=== PATIENT | female | born 1950 | race Caucasian/White ===

== ENCOUNTER 2017-04-30 08:54 | Outpatient (CLI) | payer MEDICARE ==
--- NOTE | 2017-04-30 15:35 | MRI ---
MRI OF THE LUMBAR SPINE WITHOUT CONTRAST: DATE: 04/30/17. COMPARISON: 09/11/11. HISTORY: Evaluate anterolisthesis. TECHNIQUE: Multiplanar, multisequence MR imaging of the lumbar spine is provided without contrast. FINDINGS: There is minimal increased T2 signal/STIR signal within the presacral space, less conspicuous than o n the 09/11/11 exam. There is no focal area of osseous marrow edema noted. There are incompletely visualized areas of T2 hyperintense nodularity in the left paraspinal region at T10 and T11 levels, not imaged on axial imaging. This may represent lymphadenopathy. There is diffuse decreased T1 and T2 signal intensity throughout the imaged spine suggesting the pos sibility of an infiltrative process within the lumbar spine bone marrow, unchanged when compared to the 2012 examination. There is anterolisthesis of L5 on S1 measuring 5 mm, new. T12-L1: There is disk desiccation and mild disk space narrowing with no significant central canal o r neural foraminal stenosis. L1-2: Disk desiccation. No significant central canal or neural foraminal stenosis. L2-3: Disk desiccation and mild disk bulge with no central canal stenosis. Mild bilateral facet hy pertrophy with no significant neural foraminal stenosis. L3-4: Mild disk space narrowing and disk desiccation. No significant central canal or neural mino inal stenosis. L4-5: Bilateral facet hypertrophy, right greater than left. No significant central canal or neural foraminal stenosis. L5-S1: There is prominent facet hypertrophy bilaterally, worsened since the prior exam. There is f luid within the facet joint on the left. There is associated moderate bilateral neural foraminal st enosis, worsened. There is mild central canal stenosis. There is multifocal lobulated soft tissue density within the bilateral retrocrural regions and retro peritoneum, evidence of lymphadenopathy. In addition, there are areas of soft tissue nodularity wit hin the paracolic fat bilaterally suggesting possible carcinomatosis. IMPRESSION: 1. Retroperitoneal and retrocrural lymphadenopathy with possible soft tissue metastatic disease wit hin the paracolic fat bilaterally. 2. Diffuse decreased signal intensity within the marrow suggests an infiltrating marrow process, irving ch as a malignancy/metastatic disease. 3. Degenerative change within the lumbar spine, worsened since the prior exam, particularly at the L5-S1 level. A dedicated CT examination of the chest, abdomen, and pelvis is advised. CODE T POS: EULA
== END 2017-04-30 08:55 | disposition home or self-care (01) ==
LOC: MRI 08:54
PROVIDERS: ATTEND Family Medicine
DX: M43.10 Spondylolisthesis, site unspecified (principal); M47.816 Spondylosis without myelopathy or radiculopathy, lumbar region
CPT/HCPCS: 72148

== ENCOUNTER 2019-02-18 17:18 | Emergency (ER) | payer MEDICARE ==
[2019-02-18] MEDS ORDERED: HYDROcodone/Acetaminophen 10/325 mg Tablet ONE (17:35)
[2019-02-18] MEDS ORDERED: Cyclobenzaprine 10 MG TAB ONE (17:40)
--- NOTE | 2019-02-18 17:58 | CT ---
CT head noncontrast HISTORY: Fall. Head injury. FINDINGS: There is no evidence of acute intracranial hemorrhage or infarct. The ventricles appear nor mal in size, shape and position. There is no mass effect or shift of midline structures. Visualized paranasal sinuses remain well aerated. IMPRESSION: No acute intracranial abnormalities are demonstrated.
--- NOTE | 2019-02-18 18:01 | CT ---
CT cervical spine noncontrast HISTORY: Fall. Neck injury. FINDINGS: No acute fracture or dislocation are apparent. Disc space narrowing and osteophytosis throughout the cervical spine. There is 0.4 cm spondylolisthes is at the C3-4 level and 0.2 cm spondylolisthesis at the C4-5 level. No associated fractures. Cervicothoracic junction is intact. IMPRESSION: Prominent degenerative changes. No acute osseous abnormalities are demonstrated
[2019-02-18] MEDS ORDERED: Morphine 4 MG/ML VIAL ONE (18:47)
== END 2019-02-18 20:25 | disposition home or self-care (01) ==
LOC: ERS 17:18
DX: M54.2 Cervicalgia (principal); Z79.899 Other long term (current) drug therapy; W17.89XA Other fall from one level to another, initial encounter
CPT/HCPCS: 70450; 72125; 96374; J2270

== ENCOUNTER 2019-03-03 11:45 | Observation (INO) | payer MEDICARE ==
[2019-03-03 12:30] LABS: #Basophils 0.1 thou/uL (0.0-0.2); #Eosinphils 0.5 thou/uL (0.0-0.7); #Lymphocytes 1.2 thou/uL (1.20-3.40); #Monocytes 0.3 thou/uL (0.11-0.59); #Neutrophils 5.4 thou/uL (1.40-6.50); %Basophils 0.7 % (0.0-1.0); %Eosinophils 6.9 % (0.0-10.0); %Lymphocytes 15.5 % (21.0-51.0); %Monocytes 4.2 % (0.0-10.0); %Neutrophils 72.8 % (42.0-75.0); Hemoglobin 10.8 g/dL (12.0-16.0); Mean Corpuscular HGB CONC 33.6 g/dL (32.0-36.0); Mean Corpuscular Hemoglobin 31.4 pg (27.0-31.0); Mean Corpuscular Volume 93.4 fL (78.0-98.0); Mean Platelet Volume 6.7 fL (7.4-10.4); Platelet Count 367 thou/uL (130-400); RBC Distribution Width 13.9 % (11.5-14.5); Red Blood Cell (RBC) Count 3.45 mill/uL (4.20-5.40); White Blood Cell (WBC) Count 7.4 thou/uL (4.8-10.8)
[2019-03-03 12:50] LABS: ALT (SGPT) Less than 7 U/L (8-55); AST (SGOT) 5 U/L (5-34); Albumin 3.5 g/dL (3.4-4.8); Alkaline Phosphatase 179 U/L (40-150); Anion Gap 8 mmol/L (10-20); BUN (Urea Nitrogen) 6 mg/dL (9.8-20.1); Bilirubin, Total 0.2 mg/dL (0.2-1.2); Calc. Creatinine Clearance 0 mL/min (70-130); Calcium 9.7 mg/dL (7.8-10.44); Carbon Dioxide 28 mmol/L (23-31); Chloride 101 mmol/L (98-107); Estimated GFR-MDRD 87; Globulin 3.1 g/dL (2.4-3.5); Glucose 91 mg/dL (80-115); Potassium 3.9 mmol/L (3.5-5.1); Protein, Total 6.6 g/dL (6.0-8.3); Sodium 133 mmol/L (136-145)
--- NOTE | 2019-03-03 14:25 | RAD ---
XR Chest Pa Lat STANDARD HISTORY: Shortness of breath COMPARISON: 10/30/2012 FINDINGS: The heart size is normal. The lungs are well expanded without focal areas of consolidation, pneumothorax or pleural effusions. Patchy sclerotic change in the right proximal humerus is again noted. IMPRESSION: No radiographic evidence of acute cardiopulmonary process.
[2019-03-03] MEDS ORDERED: Acetaminophen 325 MG TAB PO PRN (16:53)
[2019-03-03 17:10] LABS: Troponin I Less than 0.010 ng/mL (< 0.028)
--- NOTE | 2019-03-03 17:32 | RAD ---
EXAM: 3 views of the left foot HISTORY: Foot pain COMPARISON: None FINDINGS: 3 views of the left foot shows no evidence of acute fracture or dislocation. No soft tissue swelling is seen. No degenerative changes are present. IMPRESSION: No evidence of acute osseous abnormality.
--- NOTE | 2019-03-03 17:54 | HP ---
CHIEF COMPLAINT: Multiple complaints including neck pain, shortness of breath, and left ankle pain. HISTORY OF PRESENT ILLNESS: The patient is a 68-year-old female with a history of mastocytosis, currently on medication, however, she did not bring her medications with her right now, comes into the hospital with multiple complaints. The patient stated that about 3 weeks ago, she had a fall, which was a mechanical fall. She lost her balance and fell backwards, hitting her head. She has been to couple ERs and her PCP, who have prescribed her muscle relaxants and pain medication. However, she continues to have some neck spasms. The patient also states that for the past 4 days, she has been having some blurry vision and also worsening lower extremity edema. The patient also states that normally she is able to walk with her dog, however, for the past 3 weeks, she has been unable to do so. She also feels short of breath at rest. Denies any fevers or chills. Denies any other falls besides the one 3 weeks ago. The patient stated that initially she did have pain in her left hip, however, this has resolved. She denies any. She states that she has nausea, however, no vomiting. She has decreased appetite and she normally has diarrhea daily that is her baseline. PAST MEDICAL HISTORY: She has a history of mastocytosis. ALLERGIES: SHE IS NOT ALLERGIC TO ANYTHING. MEDICATIONS: She takes Nexium, Zyrtec, and I have told to bring the remaining of her medications. FAMILY HISTORY: Sister and mother have rheumatoid arthritis. SOCIAL HISTORY: She denies any alcohol use. However, she smoked a pack and half every 48 hours, quit about 5 years ago and currently, she vapes. Denies any drug use. She is a full code. She lives with her dog. PAST SURGICAL HISTORY: She has had a hysterectomy, appendectomy, and breast implants removed. She has also had cataract removed. REVIEW OF SYSTEMS: All negative except for the ones mentioned above in the HPI. PHYSICAL EXAMINATION: VITAL SIGNS: As of the following; temperature of 97.5, respiratory rate 28, pulse 79, blood pressure 123/72, and oxygen saturation 100% on room air. GENERAL: She is awake, alert, and oriented x3. Does not appear in any distress. HEENT: Normocephalic, atraumatic. No lymphadenopathy noted. Pupils are equal and reactive to light. CARDIOVASCULAR: S1 and S2 present. No murmurs, rubs, or gallops. LUNGS: Clear to auscultation. No rhonchi or wheezes noted. ABDOMEN: Soft and nontender. Bowel sounds are present x2. EXTREMITIES: She does have some swelling and erythema to her left ankle. She does have minimal swelling on her right ankle, which is less than the left ankle. Pedal pulses are present bilaterally. She does have pain upon palpation of her bilateral feet, left greater than right. NEUROVASCULAR: Neurovascular-lambert, I was unable to ambulate the patient, however, she has 5/5 bilateral upper extremity and bilateral lower extremity strength. NEUROMUSCULAR: She also has pain upon palpation around her right sternocleidomastoid muscle and around her paraspinal cervical area. No pain upon palpation to her spine. SKIN: She does have some old scars to her left ankle. She states that she fell while chasing her dog and she had sustained an injury. LABORATORY RESULTS: As of the following; WBCs of 7.4, hemoglobin of 10.8, hematocrit of 32.3, and her platelets are 367. Chemistries; sodium of 133, potassium of 3.9, BUN of 6, creatinine of 0.67. Alkaline phosphatase is 179. Her troponin x1 is negative. Her BNP is 22. Urine has not been done. She did have a chest x-ray and a hip x-ray. Chest x-ray did not show any acute abnormality, and her hip x-ray also did not show any acute abnormality. She does have some coarse trabecular architecture of the proximal femur. She did have an EKG, which indicated some mild ST depression, which were very, very, very not significant. ASSESSMENT AND PLAN: The patient is a 68-year-old female, who presents to the hospital with multiple complaints; 1. Shortness of breath. The patient states that she has been having some mild shortness of breath and also some swelling in her bilateral ankle area. I will get an echocardiogram. Her BNP is normal. We will trend her troponins and continue to monitor. I will also, maybe, get a D-dimer on her. 2. Blurry vision. I will get an MRI brain since she stated that this happened after she sustained a fall. She has no other neurovascular deficits. 3. Left ankle pain and swelling. I will go ahead and start her on prophylactic antibiotics for possible cellulitis. I will get an x-ray, maybe get venous Dopplers just to rule out deep venous thrombosis. Also, we will get PT and OT to evaluate her since she is having pain on ambulation and if it feels unsteady. I will also check a vitamin B12 level on her. 4. History of mastocytosis. I have asked her to bring her home medications. 5. Deep venous thrombosis prophylaxis. We will put patient on some SCDs and subcu Lovenox. Of note, I did review the patient's records and she has had a lymph node biopsy for the retroperitoneal lymphadenopathy, which according to the report was negative. However, she did state that she did go to [facility], was diagnosed with mastocytosis. I will also get a vitamin B12 and a vitamin D on her. Job ID: [id number]
--- NOTE | 2019-03-03 17:55 | MRI ---
EXAM: MRI of the brain without contrast HISTORY: Blurry vision COMPARISON: None TECHNIQUE: Multiplanar multisequence MR images were obtained of the brain without IV contrast. FINDINGS: The brain demonstrates normal signal intensity on all obtained sequences. No restricted diffusion. No hydronephrosis. No extra-axial fluid collection or intracranial hemorrhage. The expected flow voids are present. Corpus callosum, pituitary, and craniocervical junction are within normal limits. The calvarium and overlying soft tissues are unremarkable. The paranasal sinuses and mastoid air cells are well aerated. IMPRESSION: No evidence of acute intracranial abnormality.
[2019-03-03 18:44] VITALS: BMI 21.4
[2019-03-03] MEDS: Ketorolac Tromethamine 30 MG/ML VIAL IVP SCH (19:49)
[2019-03-03 19:56] LABS: Troponin I Less than 0.010 ng/mL (< 0.028)
[2019-03-03] MEDS: cefTRIAXone\\ROCEPHIN 1 GM in Sodium Chloride 0.9% 100 ML IVPB SCH (19:56)
[2019-03-03] MEDS ORDERED: Zolpidem Tartrate 5 MG TAB PO PRN (20:22)
[2019-03-03] MEDS: Cyclobenzaprine 10 MG TAB PO SCH (21:09)
[2019-03-04] MEDS: Ketorolac Tromethamine 30 MG/ML VIAL IVP SCH ×3 (00:04→12:18)
[2019-03-04 05:38] LABS: #Eosinphils 0.6 thou/uL (0.0-0.7); #Lymphocytes 1.5 thou/uL (1.20-3.40); #Monocytes 0.3 thou/uL (0.11-0.59); #Neutrophils 3.7 thou/uL (1.40-6.50); %Basophils 0.2 % (0.0-1.0); %Eosinophils 9.7 % (0.0-10.0); %Monocytes 5.2 % (0.0-10.0); %Neutrophils 59.9 % (42.0-75.0); Hemoglobin 9.9 g/dL (12.0-16.0); Mean Corpuscular HGB CONC 33.6 g/dL (32.0-36.0); Mean Corpuscular Hemoglobin 31.6 pg (27.0-31.0); Mean Corpuscular Volume 94.1 fL (78.0-98.0); Mean Platelet Volume 7.2 fL (7.4-10.4); Platelet Count 309 thou/uL (130-400); RBC Distribution Width 13.8 % (11.5-14.5); Red Blood Cell (RBC) Count 3.13 mill/uL (4.20-5.40); White Blood Cell (WBC) Count 6.1 thou/uL (4.8-10.8)
[2019-03-04 05:49] LABS: Anion Gap 10 mmol/L (10-20); BUN (Urea Nitrogen) 9 mg/dL (9.8-20.1); Calc. Creatinine Clearance 72 mL/min (70-130); Calcium 9.2 mg/dL (7.8-10.44); Carbon Dioxide 25 mmol/L (23-31); Chloride 100 mmol/L (98-107); Estimated GFR-MDRD Greater than 90; Glucose 84 mg/dL (80-115); Potassium 3.7 mmol/L (3.5-5.1); Sodium 131 mmol/L (136-145)
[2019-03-04] MEDS: Cyclobenzaprine 10 MG TAB PO SCH ×2 (08:50→16:25)
[2019-03-04] MEDS ORDERED: Enoxaparin Sodium 40 MG/0.4 ML SYRINGE SC SCH (09:00)
[2019-03-04 15:31] VITALS: BP 103/57; TEMP 98
[2019-03-04] MEDS: cefTRIAXone\\ROCEPHIN 1 GM in Sodium Chloride 0.9% 100 ML IVPB SCH (16:25)
[2019-03-04] MEDS ORDERED: Loratadine 10 MG TAB PO SCH (17:00)
--- NOTE | 2019-03-04 17:28 | PDOC.HOSPP ---
- Subjective Encounter Date: 03/04/19 Encounter Time: 10:30 Subjective: pt up in bed no complains - Objective Vital Signs & Weight: Vital Signs (12 hours) Temp Pulse Pulse Pulse Pulse Resp BP 03/04/19 15:10 98.0 F 83 20 03/04/19 11:51 97.5 F L 76 16 03/04/19 09:21 80 84 83 113/64 03/04/19 09:20 80 84 83 113/64 03/04/19 07:40 97.4 F L 79 16 BP BP BP Pulse Ox Pulse Ox 03/04/19 15:10 103/57 L 96 03/04/19 11:51 109/76 96 03/04/19 09:21 121/78 119/60 94 L 03/04/19 09:20 121/78 119/60 94 L 03/04/19 07:40 139/68 95 Weight Weight 121 lb I&O: 03/03/19 03/04/19 03/05/19 06:59 06:59 06:59 Intake Total 690 Output Total 400 Balance 290 Result Diagrams: 03/04/19 04:37 03/04/19 04:37 Hospitalist ROS - Review of Systems Respiratory: denies: cough, dry, shortness of breath, hemoptysis, SOB with excertion, pleuritic pain, sputum, wheezing, other Cardiovascular: denies: chest pain, palpitations, orthopnea, paroxysmal noc. dyspnea, edema, light headedness, other Gastrointestinal: denies: nausea, vomiting, abdominal pain, diarrhea, constipation, melena, hematochezia, other - Medication Medications: Active Medications Generic Name Dose Route Start Last Admin Trade Name Luz PRN Reason Stop Dose Admin Acetaminophen 650 mg 03/03/19 16:53 03/03/19 22:26 Tylenol PO 650 mg Q4H PRN Administration Headache/Fever/Mild Pain (1-3) Amitriptyline HCl 75 mg 03/03/19 21:00 03/03/19 21:09 Elavil PO 75 mg HS ELISABET Administration Cyclobenzaprine HCl 10 mg 03/03/19 21:00 03/04/19 16:25 Flexeril PO 10 mg TID ELISABET Administration Enoxaparin Sodium 40 mg 03/04/19 09:00 03/04/19 08:51 Lovenox SC 40 mg 0900 ELISABET Administration Ceftriaxone Sodium 1 gm/ 100 mls @ 200 mls/hr 03/03/19 17:00 03/04/19 16:25 Sodium Chloride IVPB 100 mls Q24HR ELISABET Administration Ketorolac Tromethamine 15 mg 03/03/19 18:00 03/04/19 12:18 Toradol IVP 03/04/19 18:01 15 mg Q6HR ELISABET Administration Loratadine 10 mg 03/04/19 17:00 03/04/19 16:25 Claritin PO 10 mg 1700 ELISABET Administration Pantoprazole Sodium 40 mg 03/04/19 09:00 03/04/19 08:50 Protonix PO 40 mg DAILY ELISABET Administration Sodium Chloride 10 ml 03/04/19 09:00 03/04/19 08:51 Flush - Normal Saline IVF 10 ml Q12HR ELISABET Administration Zolpidem Tartrate 5 mg 03/03/19 20:22 03/03/19 22:25 Ambien PO 5 mg HSPRN PRN Administration Insomnia - Exam Neck: negative: supple, symmetric, no JVD, no thyromegaly, no lymphadenopathy, no carotid bruit, JVD Heart: negative: RRR, no murmur, no gallops, no rubs, normal peripheral pulses, irregular, diminshed peripheral pulses, murmur present, II/IV, III/IV Extremities - other findings: mild erythema noted to left ankle and edema Hosp A/P (1) SOB (shortness of breath) Code(s): R06.02 - SHORTNESS OF BREATH Status: Acute (2) Low vitamin B12 level Code(s): E53.8 - DEFICIENCY OF OTHER SPECIFIED B GROUP VITAMINS Status: Acute (3) Left ankle pain Code(s): M25.572 - PAIN IN LEFT ANKLE AND JOINTS OF LEFT FOOT Status: Acute - Plan echo pending, will continue current tx. she feels much better today. possible discharge today.
--- NOTE | 2019-03-04 22:17 | DIS ---
DATE OF ADMISSION: 03/03/2019 DATE OF DISCHARGE: 03/04/2019 DISCHARGE DIAGNOSES: Left lower leg pain, shortness of breath, blurry vision. HOSPITAL COURSE: The patient is a 68-year-old female, who has a history of mastocytosis per her, who presented to the hospital with multiple complaints. She stated that she had a fall about 3 weeks ago and has not been feeling well since. She also has been feeling some pain on ambulation. She also complained of some shortness of breath and also some blurry vision. She did have an MRI brain, which was negative. She also had her left foot x-ray, which was normal. No acute abnormalities. Chest x-ray also did not indicate any acute abnormalities. She did have, however, a patchy sclerotic change in her right proximal humerus that was noted. I did speak with the patient's daughter, who stated that she has mentioned to her that she possibly has Paget's. I did tell her to follow up with her primary for further evaluation and looking into this. I have ordered her an echocardiogram. However, it was done, the results are pending. Her BNP was 22.6. Her troponins x3 were negative. Her CRP was 3.53. She had no leukocytosis, however, I did check ESR, which was negative and her vitamin B12 and vitamin D were significantly low. Her vitamin B12 was 199 and vitamin D was 15.3. I have asked the patient to follow up with the primary. I will replace her vitamin B12 and vitamin D. She states that when she got vitamin B12 shot, she had some knots and did not tolerate that pretty well. I also have checked an SELAM, which is pending. I have told the daughter and the patient that she needs to follow up with her lab results with her primary. The patient feels comfortable to go home. She states she feels much better. She has been ambulating up and down without any difficulties. I prophylactically treated her for cellulitis for about 5 days with some Keflex. I believe her pain in left ankle could be possible secondary to gout, however, I am not sure. I did start her on some ibuprofen and some muscle relaxant, which has helped her dramatically with her pain. HOME MEDICATIONS: Her home medications will be as of the followin. Keflex 500 mg q.i.d. 2. Vitamin D 1000 units p.o. daily. 3. Vitamin B12 of 1000 mcg p.o. daily. 4. Flexeril 10 mg t.i.d. 5. Ibuprofen 600 mg b.i.d. 6. Florastor 250 daily. 7. Amitriptyline 75 mg at bedtime. 8. Nexium 20 mg daily. 9. Zyrtec 10 mg daily. It is noted that she has a penicillin allergy. However, in the hospital, I have given her ceftriaxone and she has had no issues. Again, I have told her to follow up with her primary, follow up with the lab results, and I have advised her that if her echo comes back abnormal, I will call her with it. If not, I will not call her. Job ID: [id number]
[2019-03-05 16:59] LABS: ANA Symphony (Qualitative) Negative (Negative); ANA Symphony (Quantitative) 0.2 Ratio (< 0.7 Negative); dsDNA IgG Antibody 1.9 IU/mL (<10 Negative)
== END 2019-03-04 18:19 | disposition home or self-care (01) ==
LOC: ERS 11:45 → 2SW 16:54
PROVIDERS: ADMIT Internal Medicine; ATTEND Internal Medicine
DX: R06.02 Shortness of breath (principal); H53.8 Other visual disturbances; M25.572 Pain in left ankle and joints of left foot; M54.2 Cervicalgia; F17.290 Nicotine dependence, other tobacco product, uncomplicated; Z79.899 Other long term (current) drug therapy; Z88.0 Allergy status to penicillin; Z88.5 Allergy status to narcotic agent; Z91.81 History of falling
CPT/HCPCS: 70551; 71046; 73630; 80048; 80053; 82306; 82607; 83880; 84484 ×2; 84550; 85025 ×2; 85652; 86038; 86140; 86225; 93005; 93306; 96365; 96372; 96375; 96376; 97116; 97139 ×2; 97530; 99285; G0378 ×3; 36415; J0696; J1650; J1885; J3490

== ENCOUNTER 2019-08-04 13:26 | Emergency (ER) | payer MEDICARE ==
[2019-08-04] MEDS ORDERED: Iopamidol-370 76% 500 ML 1 ML ONE (13:58)
[2019-08-04 14:10] LABS: #Eosinphils 0.2 thou/uL (0.0-0.7); #Lymphocytes 1.4 thou/uL (1.20-3.40); #Monocytes 0.3 thou/uL (0.11-0.59); #Neutrophils 4.2 thou/uL (1.40-6.50); %Basophils 0.6 % (0.0-1.0); %Eosinophils 3.8 % (0.0-10.0); %Lymphocytes 22.4 % (21.0-51.0); %Monocytes 4.3 % (0.0-10.0); %Neutrophils 68.9 % (42.0-75.0); Hemoglobin 11.4 g/dL (12.0-16.0); Mean Corpuscular HGB CONC 34.1 g/dL (32.0-36.0); Mean Corpuscular Hemoglobin 31.8 pg (27.0-31.0); Mean Corpuscular Volume 93.2 fL (78.0-98.0); Mean Platelet Volume 7.6 fL (7.4-10.4); Platelet Count 179 thou/uL (130-400); Red Blood Cell (RBC) Count 3.59 mill/uL (4.20-5.40)
[2019-08-04 14:34] LABS: ALT (SGPT) 19 U/L (8-55); AST (SGOT) 14 U/L (5-34); Albumin 4.2 g/dL (3.4-4.8); Alkaline Phosphatase 375 U/L (40-110); Anion Gap 12 mmol/L (10-20); BUN (Urea Nitrogen) 6 mg/dL (9.8-20.1); Bilirubin, Total 0.3 mg/dL (0.2-1.2); Calc. Creatinine Clearance 0 mL/min (70-130); Calcium 9.6 mg/dL (7.8-10.44); Carbon Dioxide 26 mmol/L (23-31); Chloride 102 mmol/L (98-107); Estimated GFR-MDRD 90; Globulin 3.2 g/dL (2.4-3.5); Glucose 106 mg/dL (80-115); Potassium 4.6 mmol/L (3.5-5.1); Protein, Total 7.4 g/dL (6.0-8.3); Sodium 135 mmol/L (136-145)
--- NOTE | 2019-08-04 15:05 | RAD ---
AP PELVIS: Date: 08/04/2019 HISTORY: Right groin pain. FINDINGS: The mixed sclerotic bony changes that have been noted on previous exam are compatible with patient's history of mastocytosis. Avulsive injury involving the lesser trochanter of the right hip is seen. IMPRESSION: Avulsion of the lesser trochanter of the right hip. POS: EULA
--- NOTE | 2019-08-04 15:07 | RAD ---
RIGHT HIP 2 VIEWS: Date: 08/04/2019 HISTORY: Groin pain and history of mastocytosis. COMPARISON: CT examination done in 2013. FINDINGS: Mixed sclerotic bony changes are again noted. This is compatible with a history of mastocytosis. Ther e is an acute avulsion injury of the lesser trochanter. IMPRESSION: Acute avulsion of the lesser trochanter of the right hip. POS: SHRUTI
[2019-08-04] MEDS ORDERED: Ketorolac Tromethamine 30 MG/ML VIAL ONE (15:12)
[2019-08-04] MEDS ORDERED: Ondansetron PF 4 MG/2 ML Vial ONE (15:18)
--- NOTE | 2019-08-04 15:43 | CT ---
CT ABDOMEN AND PELVIS PERFORMED WITH CONTRAST ENHANCEMENT: HISTORY: Abdominal pain. The patient felt something pop in right groin area. COMPARISON: 12/25/2012 study. FINDINGS: The lung bases show linear changes consistent with atelectasis versus scar. Hypodensities within the liver are most compatible with cysts. There is some mild fatty change to th e liver. The spleen is a somewhat thin elongated spleen. It measures 12.3 cm in length. The liver measures 18.4 cm in length. Pancreas shows no mass. The gallbladder is distended. Focus of increas ed attenuation along the gallbladder wall could represent a polyp or a small stone. Right and left adrenal glands and right and left kidneys are normal in size. There are enlarged lymp h nodes in the peripancreatic gastrohepatic ligament, retrocrural, periaortic, aortocaval, and mesent shabbir regions. This adenopathy is actually less pronounced than on the [address] OF PELVIC PERFORMED WITH CONTRAST ENHANCEMENT: There is a mild amount of stool in the rectosigmoid colon. 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 No free fluid. Review of osseous structures showed diffuse mixed sclerotic and lytic bony change. On the previous e xamination, these changes has more of a blastic or sclerotic appearance. This may be the sequelae of treatment. There is an acute avulsion fracture of the lesser trochanter of the right hip. IMPRESSION: 1. Avulsion fracture of the lesser trochanter of the right hip. This would be most likely the etiol ogy of patient's pain. 2. Mild hepatosplenomegaly. 3. Diffuse abdominal adenopathy as well as bony changes which could all be compatible with the patie nt's history of mastocytosis. 4. Probable small gallstones. POS: SHRUTI
== END 2019-08-04 16:56 | disposition home or self-care (01) ==
LOC: ERS 13:26
DX: S72.121A Displaced fracture of lesser trochanter of right femur, initial encounter for closed fracture (principal); D47.09 Other mast cell neoplasms of uncertain behavior; X50.1XXA Overexertion from prolonged static or awkward postures, initial encounter
CPT/HCPCS: 36415; 72170; 74177; 80053; 85025; J1885; J2405; Q9967

== ENCOUNTER 2019-08-21 18:20 | Inpatient (IN) | payer MEDICARE ==
[2019-08-21] MEDS ORDERED: Ketorolac Tromethamine 30 MG/ML VIAL ONE (19:15)
[2019-08-21] MEDS ORDERED: Fentanyl 100 MCG/2 ML VIAL ONE (19:15)
[2019-08-21] MEDS ORDERED: Ondansetron ODT 4 MG TAB SL PRN (23:31)
[2019-08-21] MEDS ORDERED: HYDROcodone/Acetaminophen 5/325 mg Tablet PO PRN ×2 (23:31)
[2019-08-21] MEDS ORDERED: Ondansetron PF 4 MG/2 ML Vial IVP PRN (23:31)
[2019-08-21 23:44] VITALS: BMI 23.2
[2019-08-22] MEDS ORDERED: HYDROcodone/Acetaminophen 5/325 mg Tablet PO PRN (02:00)
[2019-08-22] MEDS ORDERED: Ondansetron ODT 4 MG TAB PO PRN (02:00)
[2019-08-22] MEDS ORDERED: PROVENTIL INHALER 6.7 G (200 INHALATIONS) INH PRN (02:05)
[2019-08-22 02:35] LABS: #Eosinphils 0.5 thou/uL (0.0-0.7); #Lymphocytes 2.2 thou/uL (1.20-3.40); #Monocytes 0.4 thou/uL (0.11-0.59); #Neutrophils 1.6 thou/uL (1.40-6.50); %Basophils 0.8 % (0.0-1.0); %Eosinophils 10.5 % (0.0-10.0); %Lymphocytes 47.2 % (21.0-51.0); %Monocytes 8.1 % (0.0-10.0); %Neutrophils 33.4 % (42.0-75.0); Hemoglobin 10.3 g/dL (12.0-16.0); Mean Corpuscular HGB CONC 33.7 g/dL (32.0-36.0); Mean Corpuscular Hemoglobin 31.1 pg (27.0-31.0); Mean Corpuscular Volume 92.5 fL (78.0-98.0); Mean Platelet Volume 8.2 fL (7.4-10.4); Platelet Count 115 thou/uL (130-400); Red Blood Cell (RBC) Count 3.32 mill/uL (4.20-5.40); White Blood Cell (WBC) Count 4.7 thou/uL (4.8-10.8)
[2019-08-22 02:48] LABS: Bacteria/HPF None Seen HPF (None Seen); Bilirubin Negative (Negative); Blood, Urine Negative (Negative); Clarity Clear (Clear); Glucose, Urine (Dipstick) Normal (Negative); Leukocyte Negative Leu/uL (Negative); Nitrite Negative (Negative); Protein, Urine (Dipstick) Negative (Neg-Trace); RBC/HPF 0-3 HPF (0-3); Squamous Epithelial None Seen HPF (0-3); Urobilinogen Normal mg/dL (Less than 2); WBC/HPF 0-3 HPF (0-3)
[2019-08-22 02:49] LABS: ALT (SGPT) 9 U/L (8-55); AST (SGOT) 12 U/L (5-34); Albumin 3.9 g/dL (3.4-4.8); Alkaline Phosphatase 921 U/L (40-110); Anion Gap 11 mmol/L (10-20); BUN (Urea Nitrogen) 10 mg/dL (9.8-20.1); Bilirubin, Total 0.4 mg/dL (0.2-1.2); Calc. Creatinine Clearance 64 mL/min (70-130); Calcium 9.8 mg/dL (7.8-10.44); Carbon Dioxide 28 mmol/L (23-31); Chloride 102 mmol/L (98-107); Estimated GFR-MDRD 78; Glucose 93 mg/dL (80-115); Magnesium 2.1 mg/dL (1.6-2.6); Potassium 4.6 mmol/L (3.5-5.1); Protein, Total 6.9 g/dL (6.0-8.3); Sodium 136 mmol/L (136-145)
[2019-08-22 02:51] LABS: Urine Culture Reflex No No
--- NOTE | 2019-08-22 03:26 | HP ---
TIME OF ASSESSMENT: 0100 hours. CHIEF COMPLAINT: Severe right groin pain. HISTORY OF PRESENT ILLNESS: Ms. Griffin is a 69-year-old woman, with a known history of mastocytosis, who previously was being seen at [facility]. The patient states she was told nothing could be done and has not been following with anyone as of recently. She states she came into the emergency department two weeks ago after experiencing severe pain on the inner right groin. The patient states she was on the toilet and when she stood up, she heard a loud pop and felt severe pain on the inside of her groin. She was noted to have an acute avulsion fracture of the lesser trochanter of the right hip. Per the patient, she was recommended to follow up with Ortho as an outpatient and given a walker to mobilize at home. The patient states that yesterday she was once again attempting to urinate and this time felt severe pain with a popping sensation along the lateral right hip. She states since two weeks ago, she has had to straddle the toilet and has not been able to sit due to the severe pain. States she has been dragging her right lower extremity and using a walker to mobilize. Reports having numbness in the groin that started yesterday. No urine incontinence or stool incontinence, but she has had difficulty emptying her bladder today. She reports being seen by Ortho earlier this week and was told that nothing could be done for the fracture as it was an old fracture. After the pain she experienced today, she opted to come to the emergency department and underwent imaging with a CT of the pelvis, which has revealed a displaced fracture of the lesser trochanter with displacement and retraction, a new essentially nondisplaced transverse fracture of the greater trochanter. There is an area of bone destruction involving the posterior medial cortex of the intertrochanteric portion of the femur. Distended joint effusion with ossific or calcified density material within the joint fluid. Additionally, the CT noted markedly severe lytic and sclerotic bone metastases visualized throughout the bony skeleton including the lower lumbar spine, sacrum, coccyx, pelvis, and proximal femurs. In the ER, she was given fentanyl 50 mcg IV for her pain and Toradol 30 mg IV for her pain. It appears per ED note that her case was discussed with Dr. Ruelas of Ortho and advised admission. Of note, the patient denies having any recent fevers or chills. She does report having a reduced appetite for quite some time, unable to pinpoint how long. Reports having occasional nausea but no vomiting. No abdominal pain. Denies any fevers, chills, or sweats. No headaches or dizziness, but has noted a firm lump overlying her left islam. No vision disturbances. No upper extremity numbness or weakness. She has noted some numbness involving the right lower aspect of her face. No slurred speech. Reports long-standing peripheral neuropathy involving both feet up to her mid calves. States she has some sensation intact, but feels as if she has tight socks on. PAST MEDICAL HISTORY: 1. Mastocytosis. 2. History of heavy tobacco use. PAST SURGICAL HISTORY: 1. Hysterectomy. 2. Appendectomy. 3. Breast implants removed. 4. Cataract surgery. SOCIAL HISTORY: The patient lives with her daughter at present. She has been mobilizing with a walker, however, having difficulty, she has to drag her right leg. No alcohol consumption. Reports smoking cigarettes previously, but quit five years ago. She has continued to vape. Denies any drug use. FAMILY HISTORY: Sister and mother have rheumatoid arthritis. ALLERGIES: 1. CODEINE. 2. PENICILLIN. CURRENT MEDICATIONS: 1. Albuterol. 2. Amitriptyline. 3. Cetirizine. 4. Omeprazole. 5. Famotidine. 6. Zolpidem tartrate. PHYSICAL EXAMINATION: GENERAL: The patient appears very thin and frail, well developed, in no acute distress. VITAL SIGNS: Temperature 97.7, pulse 73, respirations 16, O2 saturation 96% on room air, and blood pressure 126/70. HEENT: Firm bony density over the left islam that is nontender. No redness, swelling. Pupils are equal, round, and reactive to light. Sclerae icterus. Extraocular movements intact. Oropharynx is clear, but notable for dry oral mucosa. NECK: Supple. Full range of motion. Reports diffuse discomfort of the cervical, thoracic, and lumbar spine. LUNGS: Clear to auscultation. CARDIAC: Regular rate and rhythm. ABDOMEN: Soft, full, nontender, and nondistended. Normoactive bowel sounds present. No guarding or rigidity. EXTREMITIES: No lower extremity edema or swelling. NEUROLOGIC: The patient with saddle anesthesia, reduced sensation involving the right lower part of her face. Facial movements normal. No tongue deviation. Power 5/5 in bilateral upper extremities. Unable to assess power in lower extremities given recent fracture. SKIN: Warm and dry. INVESTIGATIONS: As mentioned above in HPI. IMPRESSION AND PLAN: Ms. Griffin is a 69-year-old woman, with a history of mastocytosis, who has suffered a fracture of the right hip two weeks ago and a second fracture to the greater trochanter today. Imaging studies revealing diffuse sclerotic lesions involving the spine, concerning for metastases. She has a known history of mastocytosis. The patient with groin numbness and severe pain. Consult has been placed to Ortho. Apparently, the case was discussed with Dr. Ruelas. She will remain on bedrest until evaluated. Further imaging as per Dr. Ruelas. The patient does report having a firm bony lesion on the left side of her islam, but some numbness involving the right side of lower face. We will therefore obtain CT imaging of her head. She has numbness in the groin that is new as of yesterday. Difficult to tell if this is associated with bony metastases affecting her spinal cord versus the degree of fracture involving the right hip. She has been dragging her right leg and has been unable to bear any weight on it since the initial fracture. Further imaging to be determined by Day Team. She may benefit from PET scan imaging to assess for diffuse metastases. Consult has been placed to Oncology, also placed to Palliative Care. We will obtain CBC and CMP. Code status at present is full. Her surrogate decision maker is Kelly Hill, her daughter. Case discussed with Dr. Harper, who has advised plan as above. Job ID: [id number]
[2019-08-22] MEDS: Ondansetron PF 4 MG/2 ML Vial IVP PRN (04:48)
[2019-08-22] MEDS: Sodium Chloride 0.9% 1,000 ML IV SCH ×2 (04:48→23:43)
--- NOTE | 2019-08-22 06:44 | CT ---
CT OF THE BRAIN WITHOUT AND WITH IV CONTRAST: Date: 08/22/2019 COMPARISON: MRI brain dated 03/03/2019. HISTORY: History of right side facial numbness. Evaluate for metastatic disease. TECHNIQUE: Multiple contiguous axial images were obtained in a CT of the brain without and with IV contrast. FINDINGS: The brain is normal in morphology and attenuation without focal lesions or confluent areas of infarct ion. No abnormal enhancement is seen. There is no evidence of hydrocephalus, intracranial hemorrhage, or extra-axial fluid collection. The calvarium and overlying soft tissues are unremarkable. The visualized paranasal sinuses and masto id air cells are well aerated. IMPRESSION: No evidence of acute intracranial abnormality. POS: [facility]
[2019-08-22] MEDS ORDERED: Lorazepam 2 MG/ML VIAL ONE (08:21)
[2019-08-22] MEDS ORDERED: Lorazepam 2 MG/ML VIAL SLOW IVP SCH (08:25)
[2019-08-22] MEDS: Famotidine 20 MG TAB PO SCH (08:25)
[2019-08-22] MEDS: HYDROcodone/Acetaminophen 5/325 mg Tablet PO PRN (08:26)
--- NOTE | 2019-08-22 10:09 | MRI ---
RIGHT HIP MRI WITH AND WITHOUT IV CONTRAST: HISTORY: Soft tissue mass right hip. COMPARISON: CT 08/21/2019, 08/04/2019. FINDINGS: Again noted are very extensive bone metastases. There is prominent posttraumatic fat stranding in th e region overlying the right hip including subcutaneous tissue as well as the right gluteus minimus a nd gluteus medias muscle regions and intermuscular regions. The previously noted new fracture of the greater trochanter is not as well seen on the MRI study as on the prior CT. The displaced retracted fracture of the lesser trochanter is reconfirmed. The retracted iliopsoas tendon is thickened and h as some fluid around it, evidence for some iliopsoas bursal fluid. There is a large lobulated enhanc ing intraarticular mass measuring 6.4 x 9.6 cm in size, evidence for metastatic tumor, extending in an extraosseous location from the partially destroyed femoral intratrochanteric region. This mass is associated with some calcifications. IMPRESSION: 1. Very large somewhat lobulated enhancing intraarticular mass, evidence for extraosseous intraartic ular extensive bone metastasis extending outside of the confines of the right femur intratrochanteric region. Stable displaced tear of the lesser trochanter with retraction of the iliopsoas tendon with some associated fluid around the tendon. 2. The previously noted greater trochanter fracture seen on the prior CT is less well demonstrated o n the MR. 3. Fairly extensive posttraumatic fluid involving the intermuscular region including gluteus minimus and gluteus medias muscles as well as fluid between the vastus lateralis muscle and the extensor fas ml paul muscle as well as the overlying subcutaneous tissue, probably secondary to recent greater tr ochanter fracture and associated trauma. POS: [facility]
--- NOTE | 2019-08-22 11:31 | CON ---
DATE OF CONSULTATION: 08/22/2019 CHIEF COMPLAINT: Right hip pain. HISTORY OF PRESENT ILLNESS: Ms. Griffin is a 69-year-old female, who has a history of mastocytosis. She has been dealing with this for many years. She recently has not had any treatment. She has been treated in the past at [facility]. Approximately 2 weeks ago, she had pain after arising from a low toilet. She was found to have a lesser trochanteric fracture. She had workup at that time that showed an isolated fracture, but she did have significant changes in her femur related. It was thought to her mastocytosis. She had worsening pain yesterday and was unable to put any weight on her leg. Repeat x-rays have now shown a greater trochanteric fracture. A new CT scan has shown progression of erosion of the posterior cortex of the bone suggestive of possible metastasis. She has been admitted for further workup, pain control, and possible surgical intervention. She is resting comfortably on the surgical floor today. PAST MEDICAL HISTORY: Mastocytosis, history of smoking, and history of previous fracture. PAST SURGICAL HISTORY: Hysterectomy, appendectomy, previous breast implant surgery, and cataract surgery. SOCIAL HISTORY: She continues to smoke. She denies alcohol use or drug use. FAMILY MEDICAL HISTORY: Rheumatoid arthritis. ALLERGIES: TO PENICILLIN AND CODEINE. PHYSICAL EXAMINATION: VITAL SIGNS: Temperature is 97.5, pulse is 86, respiratory rate is 14, oxygen saturation is 96%, and blood pressure is 123/77. GENERAL: She is alert, lying supine, in no apparent distress. HEENT: Normocephalic and atraumatic. RESPIRATORY: Breathing comfortably. ABDOMEN: Soft, nontender, and nondistended. MUSCULOSKELETAL: The patient's right lower extremity has pain with motion. Normal leg length. She is unable to actively flex and extend at the hip because of pain. She can flex and extend her ankle. She has normal sensation distally. IMAGING DATA: X-rays and CT scan of the pelvis and right hip are reviewed. The patient has multiple lytic and sclerotic lesions throughout her bony pelvis and lumbar spine. She has a lytic area with erosion of the posterior cortex of the femur. There is fracture of the lesser trochanter with displacement. There is also fracture of the tip of the greater trochanter. IMPRESSION: Lesser trochanteric fracture as well as greater trochanteric fracture with mastocytosis and lytic area of proximal femur. PLAN: At this point, I think the patient needs further workup to rule out metastatic disease to her femur. I will order an MRI with and without contrast to better evaluate the hip. She does have erosive area and lytic area at the posterior femur, however, this may simply be the bed of the left lesser trochanter, where that was fractured. She does have severe bone disease with her mastocytosis. I think she does need stabilization of her femur. I will plan for intramedullary nail of the femur to give her bone strength. She has severely weakened intertrochanteric region of the femur and will very likely fracture further if she is not stabilized. We will proceed with surgery tomorrow morning. She will have antibiotics on-call to the operating room. Oncology has been consulted. I am curious to see if anything can be done for mastocytosis and we will follow closely to see, of course she does have metastatic disease. Job ID: [id number]
[2019-08-22] MEDS ORDERED: Iopamidol-370 76% 500 ML 1 ML ONE ×2 (13:39→13:50)
[2019-08-22] MEDS ORDERED: Magnevist 469MG/ML 20 ML VIAL ONE (13:58)
--- NOTE | 2019-08-22 14:09 | PDOC.HOSPP ---
- Subjective Encounter Date: 08/22/19 Encounter Time: 12:00 Subjective: no pain in her right hip no sob or chest pain or palp daughter at bedside - Objective Vital Signs & Weight: Vital Signs (12 hours) Temp Pulse Resp BP Pulse Ox 08/22/19 10:59 97.8 F 73 18 105/64 95 08/22/19 07:34 97.5 F L 86 14 123/77 96 08/22/19 05:23 97.5 F L 88 12 126/70 96 Weight Admit Weight 127 lb Weight 127 lb I&O: 08/21/19 08/22/19 08/23/19 06:59 06:59 06:59 Intake Total 300 Output Total 1100 Balance -800 Result Diagrams: 08/22/19 02:20 08/22/19 02:20 Hospitalist ROS - Medication Medications: Active Medications Generic Name Dose Route Start Last Admin Trade Name Freq PRN Reason Stop Dose Admin Hydrocodone Bitart/Acetaminophen 2 tab 08/22/19 02:00 08/22/19 08:26 [place] 5/325 PO 2 tab Q4H PRN Administration Severe Pain (7-10) Famotidine 20 mg 08/22/19 09:00 08/22/19 08:25 Pepcid PO 20 mg DAILY ELISABET Administration Sodium Chloride 1,000 mls @ 50 mls/hr 08/22/19 02:00 08/22/19 04:48 Normal Saline 0.9% IV 1,000 mls .Q20H ELISABET Administration Ondansetron HCl 4 mg 08/22/19 02:00 08/22/19 04:48 Zofran IVP 4 mg Q6H PRN Administration Nausea/Vomiting Pantoprazole Sodium 40 mg 08/22/19 09:00 08/22/19 08:25 Protonix PO 40 mg DAILY ELISABET Administration - Exam General Appearance: awake alert Eye: PERRL, anicteric sclera ENT: no oropharyngeal lesions, moist mucosa Neck: supple, no JVD Heart: RRR, no murmur Respiratory: no wheezes, no rales Gastrointestinal: soft, non-tender, non-distended, normal bowel sounds Extremities: no cyanosis, no edema Neurological: cranial nerve grossly intact, no focal deficits Psychiatric: normal affect, A&O x 3 Hosp A/P (1) 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 and was f/u with [facility] had run out of therapeutic options and was offered experimental med but patient refused the same roughly 8-9 months back management of intraarticular mass and fracture per , will need biopsy of mass as well with other procedures patient is apparently wanting hospice but daughter wants her to pursue further treatment options is on elavil, norco, gentle iv fluids CT chest/abd and pelvis is pending at present. d/w , per onc ortho may pursue her fracture like others.
--- NOTE | 2019-08-22 15:41 | CT ---
CT chest with IV contrast CT abdomen and pelvis with IV and oral contrast HISTORY: Mastocytosis. It mass. Metastatic disease. COMPARISON: Multiple previous CT and MRI exams. Including CT abdomen and pelvis 08/04/2019. FINDINGS: Linear atelectasis and scarring at the lung bases. No aggressive lung lesion evident. Along the internal/inferior margin of the anterior aspect left second rib is a smoothly marginated 1.0 cm x 0.6 cm soft tissue density lesion that shows benign effacement of the overlying rib. Neurogenic tumor is most likely. No pleural fluid or mediastinal adenopathy evident. Calcified mediastinal lymph nodes and granulomata are consistent with healed granulomatous disease. The 0.5 cm precordial lymph node is stable. Prominent central mesenteric and retroperitoneal adenopathy are also unchanged from the 08/04/2019 exa m. No evidence of bowel obstruction. Cysts within the liver are stable. Prominent calcification throughout the arterial structures. The splenic artery aneurysm, partially ca lcified, measures up to 3.2 cm x 2.0 cm greatest diameters on the sagittal images, size appears stable on exams dating back to 2013. There is prominent calcification throughout the arterial structu res. Diffuse mixed sclerotic/lytic abnormalities throughout the bone marrow of the skeleton is again demonstrated. The heterogeneous mixed density mass surrounding the right hip is again demonstrated. It includes sig nificant erosion at the posterior aspect of the lesser trochanter and severe expansion of the destroyed bone, as better detailed on recent MRI. IMPRESSION: Findings of chronic disease/mastocytosis involving the skeleton and thoracicoabdominal ad enopathy are stable. Expansile, destructive and aggressive appearing mass about the right hip again demonstrated. Since di stant metastases are not obvious on this exam, tissue sampling of the aggressive mass associated with the right hip may prove helpful in further diagnosis. Large splenic artery aneurysm, stable. Atherosclerosis.
--- NOTE | 2019-08-22 16:58 | CON ---
DATE OF CONSULTATION: REASON FOR CONSULTATION: Mastocytosis. HISTORY OF PRESENT ILLNESS: Ms. Griffin is a 69-year-old female who has a history of mastocytosis. Daughter states she has had this diagnosis for over 30 years and has been treated at [facility] in the past with cladribine and most recently interleukin. Approximately 1 year ago, she was offered to enter a clinical trial, which she declined, and has not been on no treatment for the past year. She was admitted 2 weeks ago for right hip pain and found to have a lesser trochanter fracture. She also had an abdominopelvic CT scan, which showed sclerotic and lytic bony lesions, consistent with metastatic disease from her mastocytosis. She was sent home, and returned yesterday after having severe pain in her right leg. CT scan showed progression of the erosion of the cortex of the bone, suggestive of metastatic disease. She then underwent an MRI of her right hip. There was a large lobulated intra-articular mass, measuring 6.4 x 9.6 cm, did extend to the extraosseous location and was partially destroying the femoral and trochanter region. She has been seen by Orthopedics, and the plan is to do a nailing of her femur tomorrow. We were asked to see her regarding her mastocytosis. She actually denies any complaints at this time. She is resting comfortably at bedside. Her daughter is present. PAST MEDICAL HISTORY: 1. Systemic mastocytosis. 2. Tobacco use. PAST SURGICAL HISTORY: 1. Hysterectomy. 2. Appendectomy. 3. Breast implants. 4. Cataract surgery. ALLERGIES: TO CODEINE AND PENICILLIN. HOME MEDICATIONS: 1. Albuterol. 2. Amitriptyline. 3. Zyrtec. 4. Prilosec. 5. Famotidine. 6. Ambien. FAMILY HISTORY: Rheumatoid arthritis. SOCIAL HISTORY: Lives with her daughter. Past history of tobacco use, now vapes. No alcohol or illicit drug use. REVIEW OF SYSTEMS: A 10-point review of systems is negative except for noted in HPI. PHYSICAL EXAMINATION: VITAL SIGNS: Temperature 97.8, pulse is 73, respiratory rate 18, BP is 105/64, and she is 95% on room air. GENERAL: This is a thin, frail female, in no acute distress. HEENT: Normocephalic and atraumatic. NECK: Supple. CV: Regular rate and rhythm. LUNGS: Clear. ABDOMEN: Soft and nontender. There is no palpable mass. EXTREMITIES: No clubbing or cyanosis. SKIN: No rash. HEMATOLOGIC: No petechiae or purpura. PSYCHIATRIC: She is alert and oriented. PERTINENT LABORATORY DATA AND X-RAYS: Current WBCs are 4.7, hemoglobin 10.3, hematocrit 30.7, and platelet count is 115,000. She has 33% neutrophils, 47% lymphocytes, and 10% eosinophils. Sodium is 136, potassium 4.6, chloride 102, CO2 is 28, BUN is 10, creatinine 0.74, and calcium 9.8. Magnesium 2.1. Bilirubin 0.4, AST is 12, ALT is 9, alkaline phosphatase is 921. Serum total protein 6.9, albumin 3.9, and globulin 3. Radiology per HPI. ASSESSMENT: 1. Longstanding history of systemic mastocytosis, off treatment for the past year. 2. Destructive lesion of the right femur, likely from mastocytosis. DISCUSSION: The patient has been discussed with Dr. Calderon, Orthopedics, and the [facility]. All care is directed toward palliation for this lady. I have asked her if she wishes to return to [facility] for a clinical trial and she declines. It is unclear if this is a primary or metastatic lesion, but given the patient's history, it is likely metastatic. Orthopedics is tentatively planning for surgery tomorrow. Palliative Care has spoken with the patient and the daughter at bedside. The patient wishes to go home with hospice; however, daughters are resistant to this plan. There appears to be no further systemic treatment for her mastocytosis except a clinical trial, so I feel hospice would be the appropriate action. We will follow along with her hospital course. Thank you for the consult. Job ID: [id number] [facility]
[2019-08-22] MEDS: Loratadine 10 MG TAB PO SCH (17:24)
[2019-08-22] MEDS: Zolpidem Tartrate 5 MG TAB PO PRN (20:56)
[2019-08-23] MEDS: Morphine 4 MG/ML VIAL SLOW IVP PRN ×2 (02:00→22:17)
[2019-08-23] MEDS: Morphine 2 MG/ML SYRINGE SLOW IVP PRN ×2 (06:35→11:41)
[2019-08-23] MEDS ORDERED: Fentanyl 100 MCG/2 ML VIAL ONE ×2 (07:39→09:55)
[2019-08-23] MEDS ORDERED: HYDROmorphone 0.5 MG/0.5 ML SYRINGE ONE (07:39)
[2019-08-23] MEDS ORDERED: Levofloxacin 500 mg/D5W 100 ml Premix Bag ONE (07:53)
[2019-08-23] MEDS ORDERED: Clindamycin/D5W 900 mg/50 ml Premix Bag ONE (07:53)
[2019-08-23] MEDS ORDERED: Clindamycin/D5W 900 MG in Premix Bag 1 BAG IVPB SCH (08:00)
[2019-08-23] MEDS: Famotidine 20 MG TAB PO SCH (08:08)
[2019-08-23] MEDS ORDERED: PHENYLEPHRINE-NS 100 MCG/ML 10 ML SYRINGE ONE ×3 (08:55→10:33)
[2019-08-23] MEDS ORDERED: Phenylephrine 10 MG/ML VIAL ONE (09:18)
[2019-08-23] MEDS ORDERED: Meperidine HCl/PF 25 MG/ML VIAL SLOW IVP PRN (09:25)
[2019-08-23] MEDS ORDERED: Promethazine HCl 25 MG/ML VIAL SLOW IVP PRN (09:25)
[2019-08-23] MEDS ORDERED: Albumin 5% 250 ML ONE (09:41)
--- NOTE | 2019-08-23 09:48 | OP ---
DATE OF PROCEDURE: 08/23/2019 PROCEDURE PERFORMED: Right femur intramedullary nail. PREOPERATIVE DIAGNOSES: Right femur pathologic fracture with proximal femoral mass. POSTOPERATIVE DIAGNOSES: Right femur pathologic fracture with proximal femoral mass. COMPLICATIONS: None. ESTIMATED BLOOD LOSS: 600 mL. FEATHER DUSTER WINDER: Angela Collins PA-C IMPLANT: Synthes 9 x 320 mm femoral nail with proximal helical blade. INDICATIONS: Ms. Griffin is a 69-year-old female, who has developed a large lytic lesion of her proximal femur. She has had pathologic fracture of the lesser and greater trochanter. She has been found to have a large mass on MRI with bony erosion. CT scan confirms posterior erosion as well. She has mastocytosis and this mass was thought to be related to that. DESCRIPTION OF PROCEDURE: Ms. Griffin was identified in the preoperative holding area. Her correct extremity was marked. She was carried to the operating room. She was positioned supine. General anesthesia was induced. A multidisciplinary time-out was performed. The right lower extremity was prepped and draped in sterile fashion. We began the procedure by evaluating the leg under intraoperative x-ray. We made a small incision proximal to the greater trochanter. We dissected down and inserted a guidewire at the tip of the trochanter. At this point, we over-reamed the guidewire. We then passed our ball-tipped guidewire to the distal femur. Next, we measured for an appropriate nail length. We then sequentially reamed from an 8.5 reamer up to a size 10 reamer. At this point, we passed our intramedullary nail. We seated this proximally. We placed a guidewire in the centered position of the femoral head and then passed our helical blade proximally. We took x-ray images confirming appropriate alignment and nail placement. The fracture was very stable, so we elected not to place a distal Crosslock screw. At this point, we thoroughly irrigated all wounds. We then closed appropriately in layers. A 0 Vicryl suture, 2-0 Vicryl suture, and andres for the skin were utilized. The patient was taken to the recovery room in good condition without complication. Job ID: [id number]
[2019-08-23] MEDS ORDERED: PROPOFOL 200 MG/20 ML VIAL ONE (10:33)
[2019-08-23] MEDS ORDERED: Ondansetron PF 4 MG/2 ML Vial ONE (10:33)
[2019-08-23] MEDS ORDERED: Dexamethasone 20 MG/5 ML VIAL ONE (10:33)
[2019-08-23] MEDS ORDERED: Lidocaine 1% PF 5 ML VIAL ONE (10:33)
[2019-08-23] MEDS ORDERED: Glycopyrrolate 0.2 MG/ML 5 ML SYRINGE ONE (10:33)
[2019-08-23] MEDS ORDERED: Rocuronium Bromide 10 MG/ML (10ML VIAL) ONE (10:33)
--- NOTE | 2019-08-23 11:36 | RAD ---
EXAM: XR Hip Rt 2-3 View PROVIDED CLINICAL HISTORY: ORIF COMPARISON: CT pelvis 08/21/2019 FINDINGS: 2 spot fluoroscopic views of the right femur demonstrate antegrade intramedullary femoral nail zoe sing the greater trochanteric, intertrochanteric, subtrochanteric and diaphyseal portions of the right femur. Interlocking screw through femoral neck. IMPRESSION: Interval postoperative change.
[2019-08-23] MEDS ORDERED: Sodium Chloride 0.9% 1,000 ML IV SCH (12:30)
--- NOTE | 2019-08-23 13:12 | PDOC.HOSPP ---
- Subjective Encounter Date: 08/23/19 Encounter Time: 10:00 Subjective: is post op IM nail to right femur, still groggy from anesthesia no sob or in distress multiple family at bedside - Objective Vital Signs & Weight: Vital Signs (12 hours) Temp Pulse Resp BP BP Pulse Ox 08/23/19 11:40 98.2 F 74 16 120/74 100 08/23/19 07:24 97.8 F 78 16 137/70 97 08/23/19 05:30 97.6 F 75 16 120/62 95 Weight Admit Weight 127 lb Weight 127 lb I&O: 08/22/19 08/23/19 08/24/19 06:59 06:59 07:59 Intake Total 300 1040 Output Total 1100 700 Balance -800 340 Result Diagrams: 08/22/19 02:20 08/22/19 02:20 Hospitalist ROS - Medication Medications: Active Medications Generic Name Dose Route Start Last Admin Trade Name Freq PRN Reason Stop Dose Admin Hydrocodone Bitart/Acetaminophen 1 tab 08/22/19 02:00 08/22/19 17:24 [place] 5/325 PO 1 tab Q4H PRN Administration Moderate Pain (4-6) Hydrocodone Bitart/Acetaminophen 2 tab 08/22/19 02:00 08/22/19 08:26 [place] 5/325 PO 2 tab Q4H PRN Administration Severe Pain (7-10) Amitriptyline HCl 75 mg 08/22/19 21:00 08/22/19 20:51 Elavil PO 75 mg HS ELISABET Administration Famotidine 20 mg 08/22/19 09:00 08/23/19 08:08 Pepcid PO Not Given DAILY ELISABET Sodium Chloride 1,000 mls @ 50 mls/hr 08/22/19 02:00 08/22/19 23:43 Normal Saline 0.9% IV Not Given .Q20H ELISABET Loratadine 10 mg 08/22/19 17:00 08/22/19 17:24 Claritin PO 10 mg 1700 ELISABET Administration Morphine Sulfate 2 mg 08/23/19 01:54 08/23/19 11:41 Morphine SLOW IVP 2 mg Q4H PRN Administration Mild-Moderate Pain (1-5) Morphine Sulfate 4 mg 08/23/19 01:55 08/23/19 02:00 Morphine SLOW IVP 4 mg Q4H PRN Administration Moderate to Severe Pain (6-10) Ondansetron HCl 4 mg 08/22/19 02:00 08/22/19 17:25 Zofran Odt PO 4 mg Q6H PRN Administration Nausea/Vomiting Ondansetron HCl 4 mg 08/22/19 02:00 08/22/19 04:48 Zofran IVP 4 mg Q6H PRN Administration Nausea/Vomiting Pantoprazole Sodium 40 mg 08/22/19 09:00 08/23/19 08:08 Protonix PO Not Given DAILY ELISABET Zolpidem Tartrate 5 mg 08/22/19 21:00 08/22/19 20:56 Ambien PO 5 mg HS PRN Administration Insomnia - Exam Eye: PERRL, anicteric sclera ENT: no oropharyngeal lesions, dry oral mucosa Neck: supple, no JVD Heart: RRR, no murmur Respiratory: no wheezes, no rales Gastrointestinal: soft, non-tender, non-distended, normal bowel sounds Extremities: no cyanosis, no edema Neurological: cranial nerve grossly intact, no focal deficits Hosp A/P (1) 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 and was f/u with [facility] had run out of therapeutic options and was offered experimental med but patient refused the same roughly 8-9 months back is s/p IM to femur with biopsy patient is apparently wanting hospice but daughter wants her to pursue further treatment options is on elavil, norco, gentle iv fluids CT chest/abd and pelvis results noted.
[2019-08-23] MEDS: Clindamycin/D5W 900 MG in Premix Bag 1 BAG IVPB SCH ×2 (13:23→22:22)
[2019-08-23] MEDS: Ondansetron PF 4 MG/2 ML Vial IVP PRN (13:24)
[2019-08-23 13:28] LABS: Hemoglobin 7.2 g/dL (12.0-16.0); Mean Corpuscular Hemoglobin 31.4 pg (27.0-31.0); Mean Corpuscular Volume 92.2 fL (78.0-98.0); Mean Platelet Volume 8.5 fL (7.4-10.4); Platelet Count 86 thou/uL (130-400); White Blood Cell (WBC) Count 3.3 thou/uL (4.8-10.8)
[2019-08-23] MEDS: HYDROcodone/Acetaminophen 5/325 mg Tablet PO PRN ×2 (14:01→18:12)
[2019-08-23] MEDS: Loratadine 10 MG TAB PO SCH (18:12)
[2019-08-23] MEDS: Sodium Chloride 0.9% 1,000 ML IV SCH (18:22)
[2019-08-23] MEDS: Zolpidem Tartrate 5 MG TAB PO PRN (20:22)
--- NOTE | 2019-08-23 23:40 | PDOC.EVN ---
Event Note - Event Note Event Note: RN called - Pt requesting to be DNAR. Just had surgery today. Probably full code due to surgery earlier. AM to follow up.
[2019-08-24] MEDS ORDERED: Cyclobenzaprine 10 MG TAB PO PRN (00:47)
[2019-08-24] MEDS: Morphine 4 MG/ML VIAL SLOW IVP PRN (05:12)
[2019-08-24 06:41] LABS: #Eosinphils 0.3 thou/uL (0.0-0.7); #Lymphocytes 1.6 thou/uL (1.20-3.40); #Monocytes 0.3 thou/uL (0.11-0.59); #Neutrophils 2.1 thou/uL (1.40-6.50); %Basophils 0.1 % (0.0-1.0); %Eosinophils 6.7 % (0.0-10.0); %Monocytes 7.1 % (0.0-10.0); Hemoglobin 6.9 g/dL (12.0-16.0); Mean Corpuscular HGB CONC 34.8 g/dL (32.0-36.0); Mean Corpuscular Hemoglobin 32.2 pg (27.0-31.0); Mean Corpuscular Volume 92.6 fL (78.0-98.0); Mean Platelet Volume 8.8 fL (7.4-10.4); Platelet Count 89 thou/uL (130-400); RBC Distribution Width 12.9 % (11.5-14.5); Red Blood Cell (RBC) Count 2.13 mill/uL (4.20-5.40); White Blood Cell (WBC) Count 4.2 thou/uL (4.8-10.8)
[2019-08-24 06:58] LABS: Anion Gap 10 mmol/L (10-20); BUN (Urea Nitrogen) 8 mg/dL (9.8-20.1); Calc. Creatinine Clearance 71 mL/min (70-130); Calcium 9.4 mg/dL (7.8-10.44); Carbon Dioxide 28 mmol/L (23-31); Chloride 104 mmol/L (98-107); Estimated GFR-MDRD 87; Glucose 99 mg/dL (80-115); Potassium 5.1 mmol/L (3.5-5.1); Sodium 137 mmol/L (136-145)
[2019-08-24] MEDS: Famotidine 20 MG TAB PO SCH (08:05)
[2019-08-24] MEDS: HYDROcodone/Acetaminophen 5/325 mg Tablet PO PRN ×4 (08:06→20:26)
[2019-08-24] MEDS: Sodium Chloride 0.9% 1,000 ML IV SCH (08:20)
--- NOTE | 2019-08-24 12:53 | PDOC.HOSPP ---
- Subjective Encounter Date: 08/24/19 Encounter Time: 11:00 Subjective: no pain, feels better daughter at bedside - Objective Vital Signs & Weight: Vital Signs (12 hours) Temp Pulse Pulse Resp BP BP BP 08/24/19 12:25 98.0 F 82 20 104/52 L 08/24/19 12:09 98.1 F 20 117/65 08/24/19 10:38 98.1 F 88 16 98/60 08/24/19 07:34 98.2 F 93 16 118/65 08/24/19 04:00 98.2 F 95 16 107/61 08/24/19 01:00 98.9 F 96 16 111/56 L Pulse Ox 08/24/19 12:25 94 L 08/24/19 12:09 95 08/24/19 10:38 95 08/24/19 07:34 92 L 08/24/19 04:00 95 08/24/19 01:00 76 L Weight Admit Weight 127 lb Weight 127 lb I&O: 08/23/19 08/24/19 08/25/19 05:59 06:59 06:59 Intake Total 0 Output Total Balance 0 Result Diagrams: 08/24/19 06:19 08/24/19 06:19 Hospitalist ROS - Medication Medications: Active Medications Generic Name Dose Route Start Last Admin Trade Name Freq PRN Reason Stop Dose Admin Hydrocodone Bitart/Acetaminophen 1 tab 08/22/19 02:00 08/22/19 17:24 [place] 5/325 PO 1 tab Q4H PRN Administration Moderate Pain (4-6) Hydrocodone Bitart/Acetaminophen 2 tab 08/22/19 02:00 08/24/19 12:15 [place] 5/325 PO 2 tab Q4H PRN Administration Severe Pain (7-10) Amitriptyline HCl 75 mg 08/22/19 21:00 08/23/19 20:22 Elavil PO 75 mg HS ELISABET Administration Cyclobenzaprine HCl 5 mg 08/24/19 00:47 08/24/19 00:52 Flexeril PO 08/25/19 00:48 5 mg TID PRN Administration Muscle Spasm Famotidine 20 mg 08/22/19 09:00 08/24/19 08:05 Pepcid PO 20 mg DAILY ELISABET Administration Sodium Chloride 1,000 mls @ 50 mls/hr 08/22/19 02:00 08/24/19 08:20 Normal Saline 0.9% IV 1,000 mls .Q20H ELISABET Administration Loratadine 10 mg 08/22/19 17:00 08/23/19 18:12 Claritin PO 10 mg 1700 ELISABET Administration Morphine Sulfate 2 mg 08/23/19 01:54 08/23/19 11:41 Morphine SLOW IVP 2 mg Q4H PRN Administration Mild-Moderate Pain (1-5) Morphine Sulfate 4 mg 08/23/19 01:55 08/24/19 05:12 Morphine SLOW IVP 4 mg Q4H PRN Administration Moderate to Severe Pain (6-10) Ondansetron HCl 4 mg 08/22/19 02:00 08/22/19 17:25 Zofran Odt PO 4 mg Q6H PRN Administration Nausea/Vomiting Ondansetron HCl 4 mg 08/22/19 02:00 08/23/19 13:24 Zofran IVP 4 mg Q6H PRN Administration Nausea/Vomiting Pantoprazole Sodium 40 mg 08/22/19 09:00 08/24/19 08:05 Protonix PO 40 mg DAILY ELISABET Administration Zolpidem Tartrate 5 mg 08/22/19 21:00 08/23/19 20:22 Ambien PO 5 mg HS PRN Administration Insomnia - Exam General Appearance: awake alert Eye: PERRL, anicteric sclera ENT: no oropharyngeal lesions, dry oral mucosa Neck: supple, no JVD Heart: RRR, no murmur Respiratory: no wheezes, no rales Gastrointestinal: soft, non-tender, non-distended, normal bowel sounds Extremities: no cyanosis, no edema Extremities - other findings: right hip in dressing Neurological: cranial nerve grossly intact, no focal deficits Psychiatric: normal affect, A&O x 3 Hosp A/P (1) Malignant mastocytosis Code(s): 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 and was f/u with [facility] had run out of therapeutic options and was offered experimental med but patient refused the same roughly 8-9 months back is s/p IM to femur with biopsy, biopsy results are pending. She wants to be DNAR, confirmed at bedside this am 08/24/2019. patient is apparently wanting hospice but daughter wants her to pursue further treatment options is on elavil, norco, gentle iv fluids CT chest/abd and pelvis results noted. will get 1 u prbc PT/OT to mobilize per ortho advice
[2019-08-24] MEDS: Loratadine 10 MG TAB PO SCH (16:29)
[2019-08-25] MEDS: HYDROcodone/Acetaminophen 5/325 mg Tablet PO PRN ×6 (00:12→22:14)
[2019-08-25] MEDS: Zolpidem Tartrate 5 MG TAB PO PRN ×2 (00:12→20:39)
[2019-08-25 05:17] LABS: #Eosinphils 0.4 thou/uL (0.0-0.7); #Lymphocytes 1.8 thou/uL (1.20-3.40); #Monocytes 0.4 thou/uL (0.11-0.59); %Basophils 0.4 % (0.0-1.0); %Eosinophils 9.2 % (0.0-10.0); %Lymphocytes 38.1 % (21.0-51.0); %Monocytes 8.3 % (0.0-10.0); Hemoglobin 7.5 g/dL (12.0-16.0); Mean Corpuscular HGB CONC 35.1 g/dL (32.0-36.0); Mean Corpuscular Hemoglobin 31.9 pg (27.0-31.0); Mean Platelet Volume 8.3 fL (7.4-10.4); Platelet Count 89 thou/uL (130-400); RBC Distribution Width 13.4 % (11.5-14.5); Red Blood Cell (RBC) Count 2.36 mill/uL (4.20-5.40); White Blood Cell (WBC) Count 4.6 thou/uL (4.8-10.8)
[2019-08-25] MEDS: Morphine 2 MG/ML SYRINGE SLOW IVP PRN (07:22)
[2019-08-25] MEDS: Cyclobenzaprine 10 MG TAB PO PRN (09:23)
[2019-08-25] MEDS: Famotidine 20 MG TAB PO SCH (09:23)
[2019-08-25] MEDS: Sodium Chloride 0.9% 1,000 ML IV SCH (11:25)
[2019-08-25] MEDS: Loratadine 10 MG TAB PO SCH (18:21)
--- NOTE | 2019-08-25 19:23 | PDOC.HOSPP ---
- Subjective Encounter Date: 08/25/19 Subjective: The patient was seen and examined. She denies any new complaints. She is participating with physical therapy. - Objective Vital Signs & Weight: Vital Signs (12 hours) Temp Pulse Resp BP BP Pulse Ox 08/25/19 11:09 98.3 F 99 16 109/62 95 08/25/19 08:10 98.1 F 87 16 114/69 96 08/25/19 08:00 96 Weight Admit Weight 127 lb Weight 127 lb I&O: 08/24/19 08/25/19 08/26/19 06:59 06:59 06:59 Intake Total 1710 Output Total 1250 400 Balance 460 -400 Result Diagrams: 08/25/19 05:00 08/24/19 06:19 Hospitalist ROS - Medication Medications: Active Medications Generic Name Dose Route Start Last Admin Trade Name Freq PRN Reason Stop Dose Admin Hydrocodone Bitart/Acetaminophen 1 tab 08/22/19 02:00 08/22/19 17:24 [place] 5/325 PO 1 tab Q4H PRN Administration Moderate Pain (4-6) Hydrocodone Bitart/Acetaminophen 2 tab 08/22/19 02:00 08/25/19 18:16 [place] 5/325 PO 2 tab Q4H PRN Administration Severe Pain (7-10) Amitriptyline HCl 75 mg 08/22/19 21:00 08/24/19 20:25 Elavil PO 75 mg HS ELISABET Administration Cyclobenzaprine HCl 10 mg 08/25/19 07:41 08/25/19 09:23 Flexeril PO 10 mg TID PRN Administration Muscle Spasm Famotidine 20 mg 08/22/19 09:00 08/25/19 09:23 Pepcid PO 20 mg DAILY ELISABET Administration Sodium Chloride 1,000 mls @ 50 mls/hr 08/22/19 02:00 08/25/19 11:25 Normal Saline 0.9% IV Not Given .Q20H ELISABET Loratadine 10 mg 08/22/19 17:00 08/25/19 18:21 Claritin PO 10 mg 1700 ELISABET Administration Morphine Sulfate 2 mg 08/23/19 01:54 08/25/19 07:22 Morphine SLOW IVP 2 mg Q4H PRN Administration Mild-Moderate Pain (1-5) Morphine Sulfate 4 mg 08/23/19 01:55 08/24/19 05:12 Morphine SLOW IVP 4 mg Q4H PRN Administration Moderate to Severe Pain (6-10) Ondansetron HCl 4 mg 08/22/19 02:00 08/22/19 17:25 Zofran Odt PO 4 mg Q6H PRN Administration Nausea/Vomiting Ondansetron HCl 4 mg 08/22/19 02:00 08/23/19 13:24 Zofran IVP 4 mg Q6H PRN Administration Nausea/Vomiting Pantoprazole Sodium 40 mg 08/22/19 09:00 08/25/19 09:23 Protonix PO 40 mg DAILY ELISABET Administration Zolpidem Tartrate 5 mg 08/22/19 21:00 08/25/19 00:12 Ambien PO 5 mg HS PRN Administration Insomnia - Exam General Appearance: awake alert ENT: normocephalic atraumatic Neck: supple Heart: RRR, no murmur, no gallops, no rubs, normal peripheral pulses Respiratory: CTAB, no wheezes, no rales, no ronchi Gastrointestinal: soft, non-tender, non-distended, normal bowel sounds Hosp A/P (1) Postoperative anemia due to acute blood loss Code(s): D62 - ACUTE POSTHEMORRHAGIC ANEMIA Status: Acute (2) Right femoral fracture Code(s): S72.91XA - UNSP FRACTURE OF RIGHT FEMUR, INIT FOR CLOS FX Status: Acute Qualifiers: Encounter type: subsequent encounter Femur location: greater trochanter Fracture type: closed Fracture alignment: displaced (3) Malignant mastocytosis Code(s): C96.20 - MALIGNANT MAST CELL NEOPLASM, UNSPECIFIED Status: Chronic - Plan The patient is not in any acute distress. She is participating with physical therapy. Her current goal is to be discharged to a rehab facility to get stronger and be back on her feet. The patient aware that her malignancy is advanced and she is not interested in pursuing any clinical trials. The patient will discuss hospice with her family after discharge.
[2019-08-26] MEDS: HYDROcodone/Acetaminophen 5/325 mg Tablet PO PRN ×3 (02:07→10:53)
[2019-08-26] MEDS: Sodium Chloride 0.9% 1,000 ML IV SCH (06:20)
[2019-08-26] MEDS: Cyclobenzaprine 10 MG TAB PO PRN (08:18)
[2019-08-26] MEDS: Famotidine 20 MG TAB PO SCH (08:18)
[2019-08-26 13:16] VITALS: BP 135/77; TEMP 97.7
--- NOTE | 2019-08-27 01:40 | DIS ---
DATE OF ADMISSION: 08/21/2019 DATE OF DISCHARGE: 08/26/2019 HISTORY OF PRESENT ILLNESS AND HOSPITAL COURSE: The patient is a 69-year-old female with past medical history of systemic mastocytosis that she had for over 30 years according to her family. The patient has been treated at [facility] and reportedly failed management with cladribine and interleukin and was offered to be enrolled in a clinical trial that the patient has declined. The patient presented to the emergency department 2 weeks prior to presentation with severe pain on her inner groin that started when she was sitting on the toilet and stood up and heard a loud pop in her groin area associated with severe pain. At that time, she was diagnosed with acute avulsion fracture of the lesser trochanter of the right hip and nonoperative management was recommended by Orthopedic Service. One day prior to presentation to the ER, the patient felt severe pain and a popping sensation along the right hip area. The pain was persistent and prompted her to present to the emergency department. In the ER, CT scan of the pelvic area revealed findings of chronic mastocytosis involving the skeleton with expansile destructive and aggressive appearing mass around the right hip. MRI was performed on the right hip, which demonstrated a very large lobulated enhancing intra-articular mass with evidence of extraosseous and intra-articular extensive bony metastasis extending outside the confines of the right femur and intertrochanteric region. Orthopedic Service was consulted for lesser trochanteric fracture and greater trochanteric fracture with mastocytosis and lytic area of the proximal femur. Subsequently, a right femur intramedullary nail fixation was performed successfully on 08/23/2019. Postoperatively, the patient was participating with physical therapy and was beginning to ambulate prior to discharge. At this point, the patient wishes to pursue outpatient physical therapy to try to get back to her feet and subsequently will discuss with her family for possible transition to hospice. DISCHARGE DIAGNOSES: 1. Pathologic fracture of the right femur. 2. Malignant mastocytosis. 3. Chronic anemia. 4. Acute anemia postoperatively due to acute blood loss. DISCHARGE MEDICATIONS: 1. Albuterol 8.5 g HFA inhaled q.6 hours as needed for shortness of breath. 2. Amitriptyline 75 mg orally daily. 3. Cetirizine 10 mg orally daily. 4. Esomeprazole 20 mg capsule orally daily. 5. Famotidine 20 mg orally daily. 6. Zolpidem 5 mg orally nightly. 7. [place] 5/325 mg one tablet orally every 4 hours as needed for pain. CONDITION ON DISCHARGE: Stable. Job ID: [id number]
== END 2019-08-26 15:02 | DRG 481 ==
LOC: ERS 18:20 → SURG A 20:11
PROVIDERS: ADMIT Internal Medicine Sleep Medicine; ATTEND Internal Medicine
PROC: 0QS636Z Reposition Right Upper Femur with Intramedullary Internal Fixation Device, Percutaneous Approach (ICD-10-PCS; principal; 2019-08-23)
DX: M84.551A Pathological fracture in neoplastic disease, right femur, initial encounter for fracture (principal); C96.2 Malignant mast cell neoplasm; D62 Acute posthemorrhagic anemia; Z66 Do not resuscitate; F17.200 Nicotine dependence, unspecified, uncomplicated; D63.0 Anemia in neoplastic disease; Z88.0 Allergy status to penicillin; Z88.5 Allergy status to narcotic agent; Z79.51 Long term (current) use of inhaled steroids; Z79.899 Other long term (current) drug therapy
CPT/HCPCS: 36415; 36430; 70470; 71260; 74177; 76000; 80048; 80053; 81001; 83735; 85025; 85027; 86850; 86900; 86901; 88184; 88307; 88311; 88341; 88342; 93005; 93010; 96374; 96375; A9579; C1769; J1100; J1170; J1885; J1956; J2001; J2060; J2270; J2370; J2405; J2704; J3010; J3490; J7620; P9016; P9045; Q0162; Q9967

== ENCOUNTER 2019-09-04 04:58 | Emergency (ER) | payer MEDICARE ==
[2019-09-04 05:58] LABS: #Eosinphils 0.4 thou/uL (0.0-0.7); #Monocytes 0.3 thou/uL (0.11-0.59); #Neutrophils 2.6 thou/uL (1.40-6.50); %Eosinophils 9.1 % (0.0-10.0); %Lymphocytes 23.3 % (21.0-51.0); %Monocytes 7.5 % (0.0-10.0); %Neutrophils 60.1 % (42.0-75.0); Hemoglobin 7.8 g/dL (12.0-16.0); Mean Corpuscular HGB CONC 33.7 g/dL (32.0-36.0); Mean Corpuscular Hemoglobin 30.9 pg (27.0-31.0); Mean Corpuscular Volume 91.7 fL (78.0-98.0); Mean Platelet Volume 8.4 fL (7.4-10.4); Platelet Count 76 thou/uL (130-400); RBC Distribution Width 14.4 % (11.5-14.5); Red Blood Cell (RBC) Count 2.51 mill/uL (4.20-5.40); White Blood Cell (WBC) Count 4.2 thou/uL (4.8-10.8)
[2019-09-04 06:02] LABS: ALT (SGPT) 18 U/L (8-55); AST (SGOT) 27 U/L (5-34); Albumin 3.4 g/dL (3.4-4.8); Alkaline Phosphatase 1933 U/L (40-110); Anion Gap 13 mmol/L (10-20); BUN (Urea Nitrogen) 8 mg/dL (9.8-20.1); Bilirubin, Total 0.5 mg/dL (0.2-1.2); Calc. Creatinine Clearance 0 mL/min (70-130); Calcium 9.3 mg/dL (7.8-10.44); Carbon Dioxide 26 mmol/L (23-31); Chloride 96 mmol/L (98-107); Estimated GFR-MDRD Greater than 90; Globulin 2.6 g/dL (2.4-3.5); Glucose 96 mg/dL (80-115); Potassium 3.6 mmol/L (3.5-5.1); Sodium 131 mmol/L (136-145)
--- NOTE | 2019-09-04 07:48 | CT ---
CT OF THE PELVIS WITHOUT CONTRAST: COMPARISON: 08/21/2019. HISTORY: Fall. History of femur fractures. Pelvic and hip pain. TECHNIQUE: Multiple contiguous axial images were obtained in a CT of the pelvis without contrast. Sagittal and coronal reformats were performed. FINDINGS: Diffuse sclerosis is seen within the bones consistent with metastatic disease. The patient is status post ORIF of a proximal right femoral fracture with an intramedullary earnest. Soft tissue swelling is seen surrounding the right femur fracture. No other fractures of the bones of the pelvis are seen. There is a fracture of the right L4 transver se process. A Garcia catheter is seen in the urinary bladder. Atherosclerotic calcifications are seen in the aort a. Multiple enlarged lymph nodes are seen in the root of the mesentery and in the pelvis. IMPRESSION: 1. Status open reduction internal fixation of right femur fracture. 2. Right L4 transverse process fracture. 3. Enlarged lymph nodes are again seen in the abdomen and pelvis. POS: [facility]
--- NOTE | 2019-09-06 09:58 | EKG ---
Test Reason : Blood Pressure : / mmHG Vent. Rate : 088 BPM Atrial Rate : 088 BPM P-R Int : 150 ms QRS Dur : 100 ms QT Int : 372 ms P-R-T Axes : 065 027 048 degrees QTc Int : 450 ms Poor data quality, interpretation may be adversely affected Normal sinus rhythm Nonspecific T wave abnormality Abnormal ECG Confirmed by ABNER WOODY M.D. ([id number]), news copy editor FORD BATEMAN ([id number]) on 09/06/2019 9:58:01 AM Referred By: Confirmed By:ABNER WOODY M.D.
== END 2019-09-04 07:00 ==
LOC: ERS 04:58
DX: S32.049A Unspecified fracture of fourth lumbar vertebra, initial encounter for closed fracture (principal); Z87.891 Personal history of nicotine dependence; W18.30XA Fall on same level, unspecified, initial encounter; Y93.01 Activity, walking, marching and hiking; Y92.129 Unspecified place in nursing home as the place of occurrence of the external cause
CPT/HCPCS: 36415; 72192; 80053; 85025; 93005